=== PATIENT | female | born 2000 | race Caucasian/White ===

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

== ENCOUNTER 2020-07-21 20:11 | Inpatient (IN) ==
[2020-07-21] MEDS ORDERED: ONDANSETRON 4 MG/2 ML VIAL IV PRN (20:23)
[2020-07-21] MEDS ORDERED: MEPERIDINE 50 MG/1 ML VIAL IV PRN (20:23)
[2020-07-21] MEDS ORDERED: BUTORPHANOL 2 MG/ML VIAL IV PRN (20:23)
[2020-07-21 20:51] LABS: Basophils % 0.3 % (0.0-0.8); Eosinophils # 0.1 10*3/uL (0.0-0.87); Eosinophils % 0.7 % (0.00-10.9); Hematocrit 33.2 VOL% (35.7-47.0); Hemoglobin 9.8 GM/DL (12.0-16.0); Immature Granulocytes % 0.4 %; Immature Granulocytes Absolute 0.04 #; Lymphocytes # 2.1 10*3/uL (1.4-4.0); Lymphocytes % 18.5 % (21.3-54.2); Mean Corpuscular HGB Conc 29.5 GM/DL (32-36); Mean Platelet Volume 9.7 FL (9.6-12.0); Monocytes % 3.9 % (1.7-12.7); Neutrophils % 76.2 % (38.7-73.9); Platelet Count 356 T/CUMM (130-400); Red Blood Count 4.61 MC/CUMM (3.8-5.5); Red Cell Distribution Width 17.6 % (9.3-17.3); White Blood Count 11.1 T/CUMM (4-12)
[2020-07-21 21:16] LABS: Albumin 2.6 G/DL (3.4-5.0); Bilirubin,Total 0.4 MG/DL (0.2-1.0); Calcium 9.4 MG/DL (8.5-10.1); Osmolality,Calculated 276.5 MOS/KG (273-304); Total Protein 7.7 G/DL (6.4-8.3)
[2020-07-22] MEDS: LACTATED RINGERS 1,000 ML IV SCH ×3 (07:17→12:30)
[2020-07-22] MEDS ORDERED: NALOXONE 0.4 MG/ML VIAL IV PRN (07:52)
[2020-07-22] MEDS ORDERED: CITRIC ACID/SODIUM CITRATE 30 ML UDCUP PO ONE (07:52)
[2020-07-22] MEDS ORDERED: FAMOTIDINE 20 MG/2 ML VIAL IV ONE (07:52)
[2020-07-22] MEDS ORDERED: ePHEDrine 50 MG/ML VIAL IV PRN (07:52)
[2020-07-22] MEDS ORDERED: OXYTOCIN/LR 20 UNIT/1,000 ML BAG IV SCH (08:00)
[2020-07-22] MEDS ORDERED: fentaNYL 2 MCG/ROPIV 0.2% EPID 100 ML EPIDURAL SCH (08:00)
[2020-07-22 08:15] LABS: INR 0.9; PT Patient Result 10.2 SECS (9.8-11.9); Partial Thromboplastin Time 26.3 SECS (23.9-33.8)
[2020-07-22] MEDS: LABETALOL 100 MG TABLET PO SCH ×3 (08:17→21:25)
[2020-07-22 08:33] LABS: Alanine Aminotransferase 10 U/L (13-56); Albumin 2.3 G/DL (3.4-5.0); Alkaline Phosphatase 154 U/L (45-117); Aspartate Amino Transferase 10 U/L (0-37); Bilirubin,Total < 0.39 MG/DL (0.2-1.0); Blood Urea Nitrogen 10 MG/DL (7-18); Calcium 9.1 MG/DL (8.5-10.1); Estimated Glom Filtration Rate 185 ML/MIN; Glucose 94 MG/DL (74-106); Osmolality,Calculated 273.7 MOS/KG (273-304); Total Protein 7.1 G/DL (6.4-8.3); Uric Acid 5.4 MG/DL (2.6-6.0)
[2020-07-22 10:38] LABS: Bilirubin,Urine Negative (Negative); Blood, Urine Negative (Negative); Glucose,Urine (UA) Negative (Negative); Ketones,Urine Negative (Negative); Nitrite,Urine Negative (Negative); Protein,Urine Negative; Squamous Epithelial Cell,Urine Occasional /HPF (0-10); Urine Appearance CLEAR (Clear); Urine Color Straw (Yellow); Urine Specific Gravity 1.003 (1.001-1.035); Urine Urobilinogen < 2.0 EU/DL (0.2-1.0); WBC,Urine <1 /HPF (0-6)
[2020-07-22] MEDS ORDERED: ceFAZolin 3,000 MG in SYRINGE 1 EACH IV ONE (15:53)
[2020-07-22] MEDS ORDERED: miSOPROStoL 200 MCG TABLET ONE (16:04)
[2020-07-22] MEDS ORDERED: METHYLERGONOVINE 0.2 MG/1 ML AMP ONE (16:04)
[2020-07-22] MEDS ORDERED: TRANEXAMIC ACID 1,000 MG/10 ML VIAL ONE (16:04)
[2020-07-22] MEDS ORDERED: OXYTOCIN/LR 20 UNIT/1,000 ML BAG IV ONE ×2 (16:04→17:38)
[2020-07-22] MEDS ORDERED: CARBOPROST TROMETHAMINE 250 MCG/ML AMP IM ONE (16:05)
[2020-07-22] MEDS ORDERED: SODIUM CHLORIDE 0.9% 0 ML IV ONE (16:05)
[2020-07-22] MEDS ORDERED: OXYTOCIN 10 UNIT/ML VIAL ONE (16:57)
[2020-07-22 17:36] LABS: Cord Arterial Blood HCO3 22.8 MMOL/L
[2020-07-22] MEDS ORDERED: RHO(D) IMMUNE GLOBULIN 300 MCG SYRINGE IM ONE (17:38)
[2020-07-22] MEDS ORDERED: oxyCODONE/ACETAMINOPHEN 5-325 MG TABLET PO PRN (17:38)
[2020-07-22] MEDS ORDERED: DIPH/TET/ACEL PERT BOOSTER VACCINE 0.5 ML VIAL IM ONE (17:38)
[2020-07-22] MEDS ORDERED: MEASLES/MUMPS/RUBELLA VACCINE 0.5 ML VIAL SUBCUT ONE (17:38)
[2020-07-22] MEDS ORDERED: BISACODYL 10 MG SUPP RECTAL PRN (17:38)
[2020-07-22] MEDS ORDERED: ACETAMINOPHEN 325 MG TABLET PO PRN (17:38)
[2020-07-22] MEDS ORDERED: BENZOCAINE 20%/MENTHOL 0.5% SPRAY 56 GM CAN TOP PRN (17:38)
[2020-07-22] MEDS ORDERED: HYDROCORTISONE 2.5% RECTAL CREAM 30 GM TUBE TOP PRN (17:38)
[2020-07-22] MEDS ORDERED: ONDANSETRON 4 MG/2 ML VIAL IV PRN (17:38)
[2020-07-22] MEDS ORDERED: LANOLIN 50% CREAM 0.3 OZ TUBE TOP PRN (17:38)
[2020-07-22] MEDS ORDERED: WITCH HAZEL PADS 100/JAR TOP PRN (17:38)
[2020-07-22 17:39] LABS: Cord Venous Blood HCO3 22.2 MMOL/L; Cord Venous Blood PCO2 54.4 MMHG
[2020-07-22 17:41] LABS: Cord Venous Blood PO2 18.3 MMHG
[2020-07-22] MEDS ORDERED: MIDAZOLAM 2 MG/2 ML VIAL ONE (17:55)
[2020-07-22] MEDS ORDERED: MORPHINE 10 MG/10 ML VIAL ONE (17:55)
[2020-07-22] MEDS ORDERED: PHENYLEPHRINE 1 MG/10 ML SYRINGE IV ONE (17:55)
[2020-07-22] MEDS ORDERED: HYDROmorphone 2 MG/1 ML VIAL IV ONE (18:07)
[2020-07-22] MEDS: KETOROLAC 30 MG/1 ML VIAL IV SCH (19:12)
[2020-07-22] MEDS: ACETAMINOPHEN 500 MG TABLET PO SCH (19:17)
[2020-07-22] MEDS: DOCUSATE SODIUM 100 MG CAPSULE PO SCH (21:26)
[2020-07-23] MEDS: ceFAZolin 1,000 MG in SYRINGE 1 EACH IV SCH ×2 (01:08→08:44)
[2020-07-23] MEDS: ACETAMINOPHEN 500 MG TABLET PO SCH ×4 (01:08→18:44)
[2020-07-23] MEDS: KETOROLAC 30 MG/1 ML VIAL IV SCH ×3 (04:15→18:44)
[2020-07-23 05:58] LABS: Basophils % 0.1 % (0.0-0.8); Eosinophils # 0.1 10*3/uL (0.0-0.87); Eosinophils % 0.4 % (0.00-10.9); Immature Granulocytes % 0.5 %; Immature Granulocytes Absolute 0.07 #; Lymphocytes # 1.5 10*3/uL (1.4-4.0); Lymphocytes % 10.6 % (21.3-54.2); Mean Corpuscular HGB Conc 30.5 GM/DL (32-36); Mean Corpuscular Volume 72.2 FL (87-102); Mean Platelet Volume 10.2 FL (9.6-12.0); Neutrophils % 83.4 % (38.7-73.9); Platelet Count 214 T/CUMM (130-400); Red Blood Count 2.91 MC/CUMM (3.8-5.5); Red Cell Distribution Width 17.4 % (9.3-17.3); White Blood Count 13.8 T/CUMM (4-12)
[2020-07-23 06:02] LABS: Hemoglobin 6.4 GM/DL (12.0-16.0)
[2020-07-23] MEDS: IBUPROFEN 800 MG TABLET PO PRN ×3 (06:51→23:32)
[2020-07-23] MEDS: DOCUSATE SODIUM 100 MG CAPSULE PO SCH ×2 (08:44→21:32)
[2020-07-23] MEDS: FERROUS SULFATE 325 MG TABLET PO SCH ×3 (08:44→21:33)
[2020-07-23] MEDS: LABETALOL 100 MG TABLET PO SCH ×3 (08:53→21:56)
[2020-07-23] MEDS ORDERED: RHO(D) IMMUNE GLOBULIN 300 MCG SYRINGE IM ONE (13:07)
[2020-07-23] MEDS: oxyCODONE/ACETAMINOPHEN 5-325 MG TABLET PO PRN ×2 (17:11→23:33)
[2020-07-23] MEDS ORDERED: SIMETHICONE CHEW 80 MG TABLET PO PRN (20:33)
[2020-07-23] MEDS: MULTIVITAMIN (PRENATAL) TABLET PO SCH (21:33)
[2020-07-23] MEDS: PANTOPRAZOLE 40 MG TABLET PO SCH (21:33)
[2020-07-23] MEDS: MAGNESIUM HYDROXIDE SUSP 30 ML UDCUP PO SCH (21:34)
[2020-07-24] MEDS: oxyCODONE/ACETAMINOPHEN 5-325 MG TABLET PO PRN (05:11)
[2020-07-24] MEDS: IBUPROFEN 800 MG TABLET PO PRN (05:11)
[2020-07-24 08:24] VITALS: BP 122/62
[2020-07-24] MEDS: DOCUSATE SODIUM 100 MG CAPSULE PO SCH (08:52)
[2020-07-24] MEDS: MULTIVITAMIN (PRENATAL) TABLET PO SCH (08:52)
[2020-07-24] MEDS: PANTOPRAZOLE 40 MG TABLET PO SCH (08:52)
[2020-07-24] MEDS ORDERED: FERROUS SULFATE 325 MG TABLET PO SCH (09:00)
[2020-07-24] MEDS: LABETALOL 100 MG TABLET PO SCH (09:01)
[2020-07-24] MEDS: MAGNESIUM HYDROXIDE SUSP 30 ML UDCUP PO SCH (09:01)
== END 2020-07-24 14:55 | disposition home or self-care (01) | DRG 540 ==
LOC: N.LDOUT 20:11 → N.LD 20:15 → N.OB 07-22 20:35
PROVIDERS: ADMIT Specialist; ATTEND Specialist
PROC: LDCSECT (ICD-10-PCS; 2020-07-22 16:30)